=== PATIENT | male | born 1945 | race American Indian/Alaskan Native ===

== ENCOUNTER 2017-01-12 00:14 | Inpatient (IN) | payer MEDICARE ==
--- NOTE | 2017-01-12 01:39 | Emergency Department Report ---
HPI - General Chief Complaint: Altered Mental Status Time Seen by Provider: 01/12/17 01:26 - HPI HPI: Room 1 The patient is a 71-year-old male presenting with a chief complaint of altered mental status. The patient was sent from [facility] for altered mental status. According to the intermediate the patient is normally " combative at baseline." The patient has not been combative today and staff noted patient to have an SPO2 of 90% on room air. Subsequently the patient was sent to the ED for evaluation. EMS found to fentanyl patch on the patient and removed it prior to the patient's arrival Location: Mental status Duration: [see above] Quality: Altered Severity: Moderate Modifying factors: [see above] Context: [see above] Mode of transportation: [not driving] ED Past Medical Hx - Past Medical History Previous Medical History?: Yes Hx Hypertension: Yes Hx Dementia: Yes Additional medical history: chronic prostatis, aphasia, hemiplegia, epilepsy, - Surgical History Past Surgical History?: Yes Additional Surgical History: peg tube, - Family History Family history: no significant - Social History Smoking Status: Unknown if ever smoked Substance Use Type: None - Medications Home Medications: Home Medications Medication Instructions Recorded Confirmed Last Taken Type Ascorbic Acid [Vitamin C] 500 mg PO QDAY 01/12/17 01/12/17 Unknown History Divalproex Sodium [Depakote] 125 mg PO TID 01/12/17 01/12/17 Unknown History Donepezil [Aricept] 5 mg PO QDAY 01/12/17 01/12/17 Unknown History Memantine HCl [Namenda] 10 mg PO QDAY 01/12/17 01/12/17 Unknown History Metoprolol [Lopressor TAB] 50 mg PO BID 01/12/17 01/12/17 Unknown History Mirtazapine [Remeron] 15 mg PO QHS 01/12/17 01/12/17 Unknown History Nitrofurantoin Macrocrysta(Nf) 50 mg PO QDAY 01/12/17 01/12/17 Unknown History [Macrodantin CAP] Phenytoin [Dilantin] 100 mg PO QDAY 01/12/17 01/12/17 Unknown History fentaNYL [Duragesic] 25 mcg TD Q3D 01/12/17 01/12/17 Unknown History traMADol [Ultram] 50 mg PO Q8HR PRN 01/12/17 01/12/17 Unknown History ED Review of Systems ROS: Stated complaint: ALTERED MENTAL STATUS Other details as noted in HPI Comment: Unobtainable due to pts medical conditions Physical Exam - Physical Exam Vital Signs: Vital Signs 01/12/17 00:29 Pulse Rate 73 Respiratory 16 Rate Blood Pressure 128/77 O2 Sat by Pulse 100 Oximetry Physical Exam: GENERAL: The patient is well-developed well-nourished elderly male lying on stretcher with apparent contractures nonverbal only localizing to sternal rub. [ ] HEENT: Normocephalic. Atraumatic. Pupils 3 mm to 2 mm bilaterally. Patient has moist mucous membranes. NECK: Supple. Trachea midline CHEST/LUNGS: Clear to auscultation. There is no respiratory distress noted. HEART/CARDIOVASCULAR: Regular. There is no tachycardia. There is no gallop rub or murmur. ABDOMEN: Abdomen is soft, nontender. Patient has normal bowel sounds. There is no abdominal distention. SKIN: There is no rash. There is no edema. There is no diaphoresis. NEURO: The patient is obtunded. Patient localizes to sternal rub MUSCULOSKELETAL: There is no evidence of acute injury. ED Course Vital Signs 01/12/17 00:29 Pulse Rate 73 Respiratory 16 Rate Blood Pressure 128/77 O2 Sat by Pulse 100 Oximetry - Reevaluation(s) Reevaluation #1: 01/12/17 03:39 Patient shows slightly increased movement of Narcan administration but still appears lethargic. Patient now tachycardia yes - Consultations Consultation #1: 01/12/17 03:[address] CT angiogram of chest CT angiogram of chest ordered ED Medical Decision Making - Lab Data Result diagrams: 01/12/17 00:53 01/12/17 00:53 - EKG Data -: EKG Interpreted by Me EKG shows normal: sinus rhythm Rate: normal - EKG Data When compared to previous EKG there are: previous EKG unavailable - Radiology Data Radiology results: report reviewed (CT head), image reviewed (CT head, chest x- ray) interpreted by me: Chest x-ray- no focal infiltrates, no pneumothorax HEENT head (read by radiologist)-no evidence of an acute intracranial process - Differential Diagnosis altered mental status, oversedation Critical care attestation.: If time is entered above; I have spent that time in minutes in the direct care of this critically ill patient, excluding procedure time. ED Disposition Clinical Impression: Altered mental status Disposition: OP ADMITTED IP TO THIS HOSP Is pt being admited?: Yes Does the pt Need Aspirin: Yes Condition: Fair Referrals: PRIMARY CARE,MD [Primary Care Provider] - 3-5 Days Time of Disposition: 03:43 (hospitalist notified. Requested CT chest)
[2017-01-12 01:54] LABS: Basophils % (Auto) 0.4 % (0.0-1.8); Eosinophils % (Auto) 0.3 % (0.0-4.3); Hemoglobin 13.6 gm/dl (11.8-15.2); Mean Corpuscular HGB Conc 32 % (32-34); Mean Corpuscular Hemoglobin 28 pg (28-32); Mean Corpuscular Volume 86 fl (84-94); Platelet Count 372 K/mm3 (140-440); Red Blood Count 4.88 M/mm3 (3.65-5.03); Red Cell Distribution Width 13.7 % (13.2-15.2); White Blood Count 11.5 K/mm3 (4.5-11.0)
[2017-01-12 01:57] LABS: Alanine Aminotransferase 13 units/L (7-56); Albumin 3.4 g/dL (3.9-5); Albumin/Globulin Ratio 0.7 %; Alkaline Phosphatase 169 units/L (35-129); Anion Gap 18 mmol/L; Bilirubin,Total 0.2 mg/dL (0.1-1.2); Blood Urea Nitrogen 12 mg/dL (9-20); Carbon Dioxide 25 mmol/L (22-30); Glucose 135 mg/dL (75-100); Magnesium 2.1 mg/dL (1.7-2.3); Potassium 4.3 mmol/L (3.6-5.0); Sodium 136 mmol/L (137-145); Total Protein 8.4 g/dL (6.3-8.2)
--- NOTE | 2017-01-12 02:30 | Cat Scan Report ---
FINAL REPORT PROCEDURE: CT HEAD/BRAIN WO CON TECHNIQUE: Computerized tomography of the head was performed without contrast material. HISTORY: altered mental status COMPARISON: No prior studies are available for comparison. FINDINGS: Skull and scalp: Normal. Paranasal sinuses: Normal. Ventricles and subarachnoid spaces: Normal. Cerebrum: No evidence of hemorrhage, acute infarction or mass. Significant atrophy and periventricular deep white matter changes are noted. Area of encephalomalacia in the left frontal lobe consistent with old infarction.. Cerebellum and brainstem: No evidence of hemorrhage, acute infarction or mass. Vasculature: Normal. Comments: None. IMPRESSION: There is no evidence of acute intracranial process. Significant atrophy and periventricular deep white matter changes are noted. 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
[2017-01-12] MEDS ORDERED: NARCAN 0.4 MG/1 ML IV ONE (03:07)
[2017-01-12 05:28] LABS: Urine Drugs of Abuse Note Disclamer
[2017-01-12 05:40] LABS: Bacteria,Urine 3+ /HPF (Negative); Bilirubin,Urine NEG (Negative); Blood,Urine SM (Negative); Ketones,Urine NEG (Negative); Leukocyte Esterase,Urine LG (Negative); Mucus,Urine FEW /HPF; Nitrite,Urine POS (Negative)
--- NOTE | 2017-01-12 06:40 | Cat Scan Report ---
FINAL REPORT PROCEDURE: CT ANGIO CHEST TECHNIQUE: Computerized tomographic angiography of the chest was performed after the IV injection of iodinated nonionic contrast including image processing. The image data was postprocessed using 2-dimensional multiplanar reformatted (MPR) and 3-dimensional (MIP and/or volume rendered) techniques. HISTORY: altered mental status, history of hypoxia COMPARISON: No prior studies are available for comparison. FINDINGS: Heart and pericardium: Normal. Thoracic aorta: Normal. Pulmonary vasculature: There is no evidence pulmonary arterial emboli.. Lymph nodes: No enlarged thoracic lymph nodes. Lungs: Mild COPD. Atelectasis and slight infiltrate bilateral lower lungs. No effusion or pneumothorax. The central airway is patent. Pleural space: No effusion, thickening, or pneumothorax. Musculoskeletal structures: No significant abnormality. Upper abdominal structures: No significant abnormality. IMPRESSION: There is no evidence of pulmonary arterial emboli. Mild COPD. Atelectasis and slight infiltrate bilateral lower lungs.
--- NOTE | 2017-01-12 07:12 | Admit Criteria Form ---
Admission Criteria Documentation: MENTAL STATUS CHANGE Clinical Indications for Inpatient Care (Place 'X' for any and all applicable criteria): Ongoing inpatient care may be needed for ANY ONE of the following(1)(2)(3)(5)(6) : [X]I. Suspected serious etiology (eg, medical disorder, BI[employer]ING [employer]PER[employer] event) of mental status change [ ]II. Danger to self or others not manageable at lower level of care [ ]III. Grave disability (eg, inability to perform self care necessary at lower level of care) [ ]IV. Agitation or inappropriate behavior interfering with care for primary condition (eg, attempting to discontinue lines or drains prematurely, unable to cooperate with respiratory care) [ ]V. Delirium [A] [D][E] as described by ANY ONE of the following(26): [ ]a) Delirium due to alcohol or sedative [F] withdrawal [ ]b) Delirium of uncertain etiology that has not responded to appropriate empiric treatment [ ]c) Delirium that prevents performance of a life-sustaining function (eg, feeding or hydrating oneself) []. General contraindications and/or Inappropriate clinical situations for Observational Care in patients with Mental Status Change, when ANY ONE of the following is required: []a) Prediction of prolongation of LOS based on ANY ONE of the following may be considered as a contraindication for observational care 2, 3, 4, 5, 6, 7, 8, 9, 10, 11 [X]i) Age > 65 yrs. [ ]ii) Patient arriving by ambulance [ ]iii) Patient with high acuity [ ]iv) Patient requiring vital sign monitoring [ ]v) Patient on IV medication [ ]b) Systolic blood pressures 180mmHg 3,12 [ ]c) Patient with altered mental status including delirium and other alteration of consciousness, (3) [ ]d) Patient whose discharge disposition will be to a usp home or rehabilitation home should not be managed in Emergency Department Observation Unit. CMS rule requires 3 days hospital stay before such placement.3,13 [ ]e) Patient with failure to thrive due to broad array of etiologies 3,16,17 [ ]f) Inability to ambulate 3,14 Extended stay beyond goal length of stay for the primary condition may be needed until ALL of the following are present(3)(5): [ ]a) Underlying medical etiology of mental status change is absent, or has been established and adequately treated [ ]b) Danger to self or others is absent or manageable at lower level of care. [ ]c) Behavior crisis management, including physical or chemical restraints, is not required or available at lower level of car [ ]d) Substance or alcohol withdrawal is absent or manageable at lower level of care. [ ]e) Behavioral symptoms (eg, agitation, somnolence, inappropriate behavior) are absent, or are manageable at lower level of care. The original [facility] [employer] content created by [facility] has been revised. The portions of the content which have been revised are identified through the use of italic text or in bold, and [facility] has neither reviewed nor approved the modified material. All other unmodified content is copyright [facility]. Please see references footnoted in the original [facility] edition 2016 Admission Criteria Met: Yes
--- NOTE | 2017-01-12 07:29 | XRay Report ---
AP CHEST: HISTORY: Altered mental status, hypoxia No comparison. There is poor inspiration with mild bibasilar atelectasis. No evidence for infiltrate, pleural effusion or pneumothorax. Heart and mediastinal structures are within normal limits. IMPRESSION: Grossly negative expiratory AP chest. Minor bibasilar atelectasis.
[2017-01-12] MEDS ORDERED: ULTRAM PO PRN (08:37)
--- NOTE | 2017-01-12 08:37 | History and Physical Report ---
History of Present Illness Date of examination: 01/12/17 History of present illness: The patient is a 71-year-old male presenting with a chief complaint of altered mental status. The patient was sent from [facility] for altered mental status. According to the half-way the patient is normally " combative at baseline." The patient has not been combative today and staff noted patient to have an SPO2 of 90% on room air. Subsequently the patient was sent to the ED for evaluation. EMS found to fentanyl patch on the patient and removed it prior to the patient's arrival Past History Past Medical History: hypertension Medications and Allergies Allergies Allergy/AdvReac Type Severity Reaction Status Date / Time No Known Allergies Allergy Unverified 01/12/17 00:39 Home Medications Medication Instructions Recorded Confirmed Last Taken Type Ascorbic Acid [Vitamin C] 500 mg PO QDAY 01/12/17 01/12/17 Unknown History Divalproex Sodium [Depakote] 125 mg PO TID 01/12/17 01/12/17 Unknown History Donepezil [Aricept] 5 mg PO QDAY 01/12/17 01/12/17 Unknown History Memantine HCl [Namenda] 10 mg PO QDAY 01/12/17 01/12/17 Unknown History Metoprolol [Lopressor TAB] 50 mg PO BID 01/12/17 01/12/17 Unknown History Mirtazapine [Remeron] 15 mg PO QHS 01/12/17 01/12/17 Unknown History Nitrofurantoin Macrocrysta(Nf) 50 mg PO QDAY 01/12/17 01/12/17 Unknown History [Macrodantin CAP] Phenytoin [Dilantin] 100 mg PO QDAY 01/12/17 01/12/17 Unknown History fentaNYL [Duragesic] 25 mcg TD Q3D 01/12/17 01/12/17 Unknown History traMADol [Ultram] 50 mg PO Q8HR PRN 01/12/17 01/12/17 Unknown History Review of Systems Respiratory: shortness of breath Neurological: change in mentation, confusion Exam - Constitutional Vitals: Temp Pulse Resp BP Pulse Ox 98.2 F 121 H 22 115/76 98 01/12/17 07:41 01/12/17 05:40 01/12/17 05:40 01/12/17 07:36 01/12/17 07:36 General appearance: Present: no acute distress - EENT Eyes: Present: PERRL, EOM intact ENT: hearing intact, clear oral mucosa - Neck Neck: Present: supple, normal ROM - Respiratory Respiratory effort: normal Respiratory: bilateral: CTA - Cardiovascular Rhythm: regular Heart Sounds: Present: S1 & S2 - Abdominal General gastrointestinal: Present: soft, non-tender, non-distended, normal bowel sounds - Musculoskeletal Musculoskeletal: strength equal bilaterally - Psychiatric Psychiatric: appropriate mood/affect, intact judgment & insight - Neurologic Neurologic: CNII-XII intact, moves all extremities Results - Labs CBC & Chem 7: 01/12/17 00:53 01/12/17 00:53 Labs: Laboratory Last Values WBC 11.5 K/mm3 (4.5-11.0) H 01/12/17 00:53 RBC 4.88 M/mm3 (3.65-5.03) 01/12/17 00:53 Hgb 13.6 gm/dl (11.8-15.2) 01/12/17 00:53 Hct 42.0 % (35.5-45.6) 01/12/17 00:53 MCV 86 fl (84-94) 01/12/17 00:53 MCH 28 pg (28-32) 01/12/17 00:53 MCHC 32 % (32-34) 01/12/17 00:53 RDW 13.7 % (13.2-15.2) 01/12/17 00:53 Plt Count 372 K/mm3 (140-440) 01/12/17 00:53 Lymph % (Auto) 7.6 % (13.4-35.0) L 01/12/17 00:53 [place] % (Auto) 3.1 % (0.0-7.3) 01/12/17 00:53 Eos % (Auto) 0.3 % (0.0-4.3) 01/12/17 00:53 Baso % (Auto) 0.4 % (0.0-1.8) 01/12/17 00:53 Lymph # 0.9 K/mm3 (1.2-5.4) L 01/12/17 00:53 [place] # 0.4 K/mm3 (0.0-0.8) 01/12/17 00:53 Eos # 0.0 K/mm3 (0.0-0.4) 01/12/17 00:53 Baso # 0.1 K/mm3 (0.0-0.1) 01/12/17 00:53 Seg Neutrophils % 88.6 % (40.0-70.0) H 01/12/17 00:53 Seg Neutrophils # 10.2 K/mm3 (1.8-7.7) H 01/12/17 00:53 Sodium 136 mmol/L (137-145) L 01/12/17 00:53 Potassium 4.3 mmol/L (3.6-5.0) 01/12/17 00:53 Chloride 97.0 mmol/L (98-107) L 01/12/17 00:53 Carbon Dioxide 25 mmol/L (22-30) 01/12/17 00:53 Anion Gap 18 mmol/L 01/12/17 00:53 BUN 12 mg/dL (9-20) 01/12/17 00:53 Creatinine 0.4 mg/dL (0.8-1.5) L 01/12/17 00:53 Estimated GFR > 60 ml/min 01/12/17 00:53 BUN/Creatinine Ratio 30.00 % 01/12/17 00:53 Glucose 135 mg/dL (75-100) H 01/12/17 00:53 Lactic Acid 3.8 mmol/L (0.7-2.0) H* 01/12/17 03:40 Calcium 9.0 mg/dL (8.4-10.2) 01/12/17 00:53 Magnesium 2.1 mg/dL (1.7-2.3) 01/12/17 00:53 Total Bilirubin 0.2 mg/dL (0.1-1.2) 01/12/17 00:53 AST 17 units/L (5-40) 01/12/17 00:53 ALT 13 units/L (7-56) 01/12/17 00:53 Alkaline Phosphatase 169 units/L (35-129) H 01/12/17 00:53 Total Protein 8.4 g/dL (6.3-8.2) H 01/12/17 00:53 Albumin 3.4 g/dL (3.9-5) L 01/12/17 00:53 Albumin/Globulin Ratio 0.7 % 01/12/17 00:53 TSH 2.400 mlU/mL (0.270-4.200) 01/12/17 00:53 Urine Color Yellow (Yellow) 01/12/17 05:09 Urine Turbidity Slightly-cloudy (Clear) 01/12/17 05:09 Urine pH 6.0 (5.0-7.0) 01/12/17 05:09 Ur Specific [place] 1.018 (1.003-1.030) 01/12/17 05:09 Urine Protein 30 mg/dl mg/dL (Negative) 01/12/17 05:09 Urine Glucose (UA) Neg mg/dL (Negative) 01/12/17 05:09 Urine Ketones Neg mg/dL (Negative) 01/12/17 05:09 Urine Blood Sm (Negative) 01/12/17 05:09 Urine Nitrite Pos (Negative) 01/12/17 05:09 Urine Bilirubin Neg (Negative) 01/12/17 05:09 Urine Urobilinogen 2.0 mg/dL (<2.0) 01/12/17 05:09 Ur Leukocyte Esterase Lg (Negative) 01/12/17 05:09 Urine WBC (Auto) 132.0 /HPF (0.0-6.0) H 01/12/17 05:09 Urine RBC (Auto) 4.0 /HPF (0.0-6.0) 01/12/17 05:09 U Epithel Cells (Auto) 4.0 /HPF (0-13.0) 01/12/17 05:09 Urine Bacteria (Auto) 3+ /HPF (Negative) 01/12/17 05:09 Ur Transition Epith Cell 1 /HPF 01/12/17 05:09 Urine Mucus Few /HPF 01/12/17 05:09 Urine Opiates Screen Presumptive negative 01/12/17 05:09 Urine Methadone Screen Presumptive negative 01/12/17 05:09 Acetaminophen < 15.0 ug/mL (10.0-30.0) 01/12/17 00:53 Ur Barbiturates Screen Presumptive negative 01/12/17 05:09 Ur Phencyclidine Scrn Presumptive negative 01/12/17 05:09 Ur Amphetamines Screen Presumptive negative 01/12/17 05:09 U Benzodiazepines Scrn Presumptive negative 01/12/17 05:09 Urine Cocaine Screen Presumptive negative 01/12/17 05:09 U Marijuana (THC) Screen Presumptive negative 01/12/17 05:09 Drugs of Abuse Note Disclamer 01/12/17 05:09 Plasma/Serum Alcohol < 0.01 gm% (0-0.07) 01/12/17 00:53 Assessment and Plan - Patient Problems (1) UTI (urinary tract infection) Current Visit: Yes Status: Acute Qualifiers: Urinary tract infection type: U Hematuria presence: H Indwelling urinary catheter type: I Encounter type: E Plan to address problem: Start IV abx and follow cultures (2) Dyspnea and respiratory abnormalities Current Visit: Yes Status: Acute Plan to address problem: CTA of the chest was negative for PE, Continue O2 (3) Altered mental status Current Visit: Yes Status: Acute Qualifiers: Altered mental status type: A Coma depth: C Coma timing: C Plan to address problem: CT Head showed no acute intracranial abnormalities, Possibly related to UTI, Will follow electrolytes
[2017-01-12] MEDS ORDERED: ZOFRAN IV PRN (08:39)
[2017-01-12] MEDS ORDERED: MILK OF MAGNESIA PO PRN (08:39)
[2017-01-12] MEDS ORDERED: NON-FORMULARY (Memantine Hcl [Namenda] 10 MG) PO SCH (10:00)
[2017-01-12] MEDS ORDERED: LOVENOX SUB-Q SCH (10:00)
[2017-01-12] MEDS ORDERED: TYLENOL PO PRN (11:00)
[2017-01-12] MEDS ORDERED: DULCOLAX PR PRN (11:00)
[2017-01-12] MEDS: LEVAQUIN 500MG/100ML 500 MG/100 ML BAG IV SCH (11:20)
[2017-01-12] MEDS: ARICEPT PO SCH (13:10)
[2017-01-12] MEDS: DILANTIN PO SCH (13:57)
[2017-01-12] MEDS: LOPRESSOR PO SCH ×2 (13:57→23:05)
[2017-01-12] MEDS: D5NS 1,000 ML IV SCH (13:58)
[2017-01-12] MEDS: VITAMIN C PO SCH (13:58)
[2017-01-12] MEDS: NAMENDA XR PO SCH (17:46)
[2017-01-12] MEDS: REMERON PO SCH (23:02)
[2017-01-13] MEDS: D5NS 1,000 ML IV SCH ×3 (00:33→22:14)
[2017-01-13 08:42] LABS: Basophils % (Auto) 0.1 % (0.0-1.8); Hematocrit 35.8 % (35.5-45.6); Hemoglobin 11.5 gm/dl (11.8-15.2); Mean Corpuscular HGB Conc 32 % (32-34); Mean Corpuscular Hemoglobin 28 pg (28-32); Mean Corpuscular Volume 86 fl (84-94); Platelet Count 308 K/mm3 (140-440); Red Blood Count 4.18 M/mm3 (3.65-5.03); Red Cell Distribution Width 13.6 % (13.2-15.2); White Blood Count 17.9 K/mm3 (4.5-11.0)
[2017-01-13 09:20] LABS: Alanine Aminotransferase 11 units/L (7-56); Albumin 3.3 g/dL (3.9-5); Albumin/Globulin Ratio 0.8 %; Alkaline Phosphatase 129 units/L (35-129); Anion Gap 16 mmol/L; Blood Urea Nitrogen 13 mg/dL (9-20); Calcium 8.9 mg/dL (8.4-10.2); Carbon Dioxide 25 mmol/L (22-30); Chloride 105.6 mmol/L (98-107); Glucose 154 mg/dL (75-100); Potassium 3.3 mmol/L (3.6-5.0); Sodium 143 mmol/L (137-145); Total Protein 7.6 g/dL (6.3-8.2)
[2017-01-13 09:24] LABS: Bilirubin,Total 0.4 mg/dL (0.1-1.2)
--- NOTE | 2017-01-13 09:42 | Gastroenterology Consultation ---
History of Present Illness - Reason for Consult Consult date: 01/13/17 Peg dislodgement. Requesting physician: ABBEY BAUM - History of Present Illness Mr. Nicole is a 71 y/o male admitted from his NH with AMS. He was noted to have an elevated lactic acid, elevated WBC. He is admitted with sepsis/ UTI. Approximately 4-5 AM, he pulled out his existing PEG. During assessment, patient is nonverbal and no family at bedside, therefore, information is obtained per chart review. Patient has no prior medical hx here at [facility], length of PEG unknown. Past History Past Medical History: hypertension Past Surgical History: Other (PEG placement.) Social history: other (Live in [place]) Family history: other (unknown.) Medications and Allergies Allergies Allergy/AdvReac Type Severity Reaction Status Date / Time No Known Allergies Allergy Unverified 01/12/17 00:39 Home Medications Medication Instructions Recorded Confirmed Last Taken Type Ascorbic Acid [Vitamin C] 500 mg PO QDAY 01/12/17 01/12/17 Unknown History Divalproex Sodium [Depakote] 125 mg PO TID 01/12/17 01/12/17 Unknown History Donepezil [Aricept] 5 mg PO QDAY 01/12/17 01/12/17 Unknown History Memantine HCl [Namenda] 10 mg PO QDAY 01/12/17 01/12/17 Unknown History Metoprolol [Lopressor TAB] 50 mg PO BID 01/12/17 01/12/17 Unknown History Mirtazapine [Remeron] 15 mg PO QHS 01/12/17 01/12/17 Unknown History Nitrofurantoin Macrocrysta(Nf) 50 mg PO QDAY 01/12/17 01/12/17 Unknown History [Macrodantin CAP] Phenytoin [Dilantin] 100 mg PO QDAY 01/12/17 01/12/17 Unknown History fentaNYL [Duragesic] 25 mcg TD Q3D 01/12/17 01/12/17 Unknown History traMADol [Ultram] 50 mg PO Q8HR PRN 01/12/17 01/12/17 Unknown History Active Meds: Active Medications Acetaminophen (Tylenol) 650 mg PO Q4H PRN PRN Reason: Pain MILD(1-3)/Fever >100.5/[place] Ascorbic Acid (Vitamin C) 500 mg PO QDAY NORMA Last Admin: 01/12/17 13:58 Dose: 500 mg Bisacodyl (Dulcolax) 10 mg UT QDAY PRN PRN Reason: Constipation unrelieved by MOM Divalproex Sodium (Depakote Dr) 125 mg PO TID [facility] Last Admin: 01/12/17 23:02 Dose: 125 mg Donepezil HCl (Aricept) 5 mg PO QDAY [facility] Last Admin: 01/12/17 13:10 Dose: Not Given Enoxaparin Sodium (Lovenox) 40 mg SUB-Q QDAY@1000 NORMA Dextrose/Sodium Chloride (D5ns) 1,000 mls @ 100 mls/hr IV DIRECT [facility] Last Admin: 01/13/17 00:33 Dose: 100 mls/hr Levofloxacin/Dextrose (Levaquin 500mg/100ml) 500 mg in 100 mls @ 100 mls/hr IV Q24HR NORMA PRN Reason: Protocol Last Admin: 01/12/17 11:20 Dose: 100 mls/hr Magnesium Hydroxide (Milk Of Magnesia) 30 ml PO Q4H PRN PRN Reason: Constipation Memantine (Namenda Xr) 14 mg PO DAILY [facility] Last Admin: 01/12/17 17:46 Dose: Not Given Metoprolol Tartrate (Lopressor) 50 mg PO BID [facility] Last Admin: 01/12/17 23:05 Dose: Not Given Mirtazapine (Remeron) 15 mg PO QHS [facility] Last Admin: 01/12/17 23:02 Dose: 15 mg Ondansetron HCl (Zofran) 4 mg IV Q8H PRN PRN Reason: N/V unrelieved by Reglan Phenytoin (Dilantin) 100 mg PO QDAY [facility] Last Admin: 01/12/17 13:57 Dose: 100 mg Tramadol HCl (Ultram) 50 mg PO Q8HR PRN PRN Reason: Pain Review of Systems - Review of Systems ROS unobtainable: due to mental status Exam - Constitutional Vital Signs: Temp Pulse Resp BP Pulse Ox 98.9 F 112 H 20 122/76 97 01/13/17 08:33 01/13/17 08:33 01/13/17 08:33 01/13/17 08:33 01/13/17 09:17 General appearance: no acute distress - EENT Eyes: EOM intact - Respiratory Respiratory: bilateral: diminished, rhonchi - Cardiovascular Rhythm: regular Heart Sounds: Present: S1 & S2 - Gastrointestinal General gastrointestinal: Present: soft, non-tender, non-distended, normal bowel sounds, other (Feeding tube in place.) - Integumentary Integumentary: Present: warm, dry - Neurologic Neurological: other (nonverbal.) - Psychiatric Psychiatric: agitated, other (restrained.) - Labs CBC & Chem 7: 01/13/17 07:50 01/13/17 07:50 Lab Results: Laboratory Results - last 24 hr 01/13/17 01/13/17 01/13/17 07:50 07:50 08:09 WBC 17.9 H RBC 4.18 Hgb 11.5 L Hct 35.8 D MCV 86 MCH 28 MCHC 32 RDW 13.6 Plt Count 308 Lymph % (Auto) 6.6 L [place] % (Auto) 4.7 Eos % (Auto) 0.0 Baso % (Auto) 0.1 Lymph # 1.2 [place] # 0.8 Eos # 0.0 Baso # 0.0 Seg Neutrophils % 88.6 H Seg Neutrophils # 15.9 H Chloride 105.6 Carbon Dioxide 25 Anion Gap 16 BUN 13 Creatinine 0.5 L Estimated GFR > 60 BUN/Creatinine Ratio 26.00 Glucose 154 H Lactic Acid 1.5 Calcium 8.9 Total Bilirubin 0.4 AST 14 ALT 11 Alkaline Phosphatase 129 Total Protein 7.6 Albumin 3.3 L Albumin/Globulin Ratio 0.8 Assessment and Plan 1. Dislodged PEG site -Since the tube was pulled out this AM, I have asked nursing to place [place] to retain track in the hope that the tube can be exchanged at bedside. Wound care was consulted to do this, and she was able to replace tube with 22f. I have ordered KUB to assess placement. No current bleeding at site. Scant sero/ sang fluid noted. DO note use site until assess per Dr. Cedillo, D/w nursing. Ok for light dressing if site drains. Keep NPO for now.
[2017-01-13] MEDS: LEVAQUIN 500MG/100ML 500 MG/100 ML BAG IV SCH (10:11)
--- NOTE | 2017-01-13 10:56 | XRay Report ---
X-RAY G-TUBE STUDY History: PEG tube replacement Findings: [employer] film of the abdomen demonstrates a PEG tube terminating in the epigastric region. IVC filter at L4-5 level. There is moderate fecal retention throughout colon. A second image was obtained following injection of oral contrast through the PEG tube. Contrast outlines a normal-appearing stomach and proximal small bowel loops. There is no evidence for extravasation or obstruction. Impression: Normal PEG tube. No evidence for extravasation or obstruction.
[2017-01-13] MEDS: LOVENOX SUB-Q SCH (13:03)
[2017-01-13] MEDS: LOPRESSOR PO SCH ×2 (13:46→22:15)
[2017-01-13] MEDS ORDERED: PANCREAZE DR 10,500 UNIT FEEDTUBE PRN (15:42)
[2017-01-13] MEDS ORDERED: SODIUM BICARBONATE FEEDTUBE PRN (15:42)
[2017-01-13] MEDS ORDERED: SIMPLE SYRUP FEEDTUBE PRN ×2 (15:42)
--- NOTE | 2017-01-13 16:26 | Progress Note ---
Assessment and Plan Assessment and plan: --Metabolic encephalopathy/altered level of consciousness Multifactorial, probably secondary to UTI, underlying dementia Continue supportive care --Urinary tract infection; IV antibiotics, IV fluids follow cultures --Acute respiratory distress Chest x-ray CT angiogram negative, continue to supportive care --Dislodged PEG tube Nothing by mouth status, GI consult, possible new PEG tube placement --DVT prophylaxis with Lovenox Closely monitor the patient and adjust the management pending clinical course --Patient for CODE STATUS I discussed patient's condition treatment plan in detail with the patient's sister who is also his POA She had many questions regarding the treatment plan, I answered all of them , verbalized understanding Possible discharge in 1-2 days if patient is stable , History Interval history: Patient seen and evaluated this morning medical records reviewed Admitted with altered level of consciousness and possibly UTI Patient also pulled Out the PEG tube Patient is noncommunicative, not in acute distress Vital signs reviewed Hospitalist Physical - Constitutional Vitals: Temp Pulse Resp BP Pulse Ox 98.8 F 118 H 20 125/78 97 01/13/17 13:32 01/13/17 13:32 01/13/17 13:32 01/13/17 13:32 01/13/17 13:32 General appearance: Present: no acute distress - EENT Eyes: Present: PERRL, EOM intact - Neck Neck: Present: supple - Respiratory Respiratory effort: normal Respiratory: bilateral: diminished, rhonchi, negative: rales, wheezing - Cardiovascular Rhythm: regular Heart Sounds: Present: S1 & S2 - Extremities Extremities: no ischemia, pulses intact, pulses symmetrical Peripheral Pulses: within normal limits - Integumentary Integumentary: Present: clear, warm - Psychiatric Psychiatric: other ( noncommunicative confused ) - Neurologic Neurologic: moves all extremities Results - Labs CBC & Chem 7: 01/13/17 07:50 01/13/17 07:50 Labs: Laboratory Last Values WBC 17.9 K/mm3 (4.5-11.0) H 01/13/17 07:50 RBC 4.18 M/mm3 (3.65-5.03) 01/13/17 07:50 Hgb 11.5 gm/dl (11.8-15.2) L 01/13/17 07:50 Hct 35.8 % (35.5-45.6) D 01/13/17 07:50 MCV 86 fl (84-94) 01/13/17 07:50 MCH 28 pg (28-32) 01/13/17 07:50 MCHC 32 % (32-34) 01/13/17 07:50 RDW 13.6 % (13.2-15.2) 01/13/17 07:50 Plt Count 308 K/mm3 (140-440) 01/13/17 07:50 Lymph % (Auto) 6.6 % (13.4-35.0) L 01/13/17 07:50 Shannon % (Auto) 4.7 % (0.0-7.3) 01/13/17 07:50 Eos % (Auto) 0.0 % (0.0-4.3) 01/13/17 07:50 Baso % (Auto) 0.1 % (0.0-1.8) 01/13/17 07:50 Lymph # 1.2 K/mm3 (1.2-5.4) 01/13/17 07:50 Shannon # 0.8 K/mm3 (0.0-0.8) 01/13/17 07:50 Eos # 0.0 K/mm3 (0.0-0.4) 01/13/17 07:50 Baso # 0.0 K/mm3 (0.0-0.1) 01/13/17 07:50 Seg Neutrophils % 88.6 % (40.0-70.0) H 01/13/17 07:50 Seg Neutrophils # 15.9 K/mm3 (1.8-7.7) H 01/13/17 07:50 Sodium 143 mmol/L (137-145) D 01/13/17 07:50 Potassium 3.3 mmol/L (3.6-5.0) L D 01/13/17 07:50 Chloride 105.6 mmol/L (98-107) 01/13/17 07:50 Carbon Dioxide 25 mmol/L (22-30) 01/13/17 07:50 Anion Gap 16 mmol/L 01/13/17 07:50 BUN 13 mg/dL (9-20) 01/13/17 07:50 Creatinine 0.5 mg/dL (0.8-1.5) L 01/13/17 07:50 Estimated GFR > 60 ml/min 01/13/17 07:50 BUN/Creatinine Ratio 26.00 % 01/13/17 07:50 Glucose 154 mg/dL (75-100) H 01/13/17 07:50 Lactic Acid 1.5 mmol/L (0.7-2.0) 01/13/17 08:09 Calcium 8.9 mg/dL (8.4-10.2) 01/13/17 07:50 Magnesium 2.1 mg/dL (1.7-2.3) 01/12/17 00:53 Total Bilirubin 0.4 mg/dL (0.1-1.2) 01/13/17 07:50 AST 14 units/L (5-40) 01/13/17 07:50 ALT 11 units/L (7-56) 01/13/17 07:50 Alkaline Phosphatase 129 units/L (35-129) 01/13/17 07:50 Total Protein 7.6 g/dL (6.3-8.2) 01/13/17 07:50 Albumin 3.3 g/dL (3.9-5) L 01/13/17 07:50 Albumin/Globulin Ratio 0.8 % 01/13/17 07:50 TSH 2.400 mlU/mL (0.270-4.200) 01/12/17 00:53 Urine Color Yellow (Yellow) 01/12/17 05:09 Urine Turbidity Slightly-cloudy (Clear) 01/12/17 05:09 Urine pH 6.0 (5.0-7.0) 01/12/17 05:09 Ur Specific [place] 1.018 (1.003-1.030) 01/12/17 05:09 Urine Protein 30 mg/dl mg/dL (Negative) 01/12/17 05:09 Urine Glucose (UA) Neg mg/dL (Negative) 01/12/17 05:09 Urine Ketones Neg mg/dL (Negative) 01/12/17 05:09 Urine Blood Sm (Negative) 01/12/17 05:09 Urine Nitrite Pos (Negative) 01/12/17 05:09 Urine Bilirubin Neg (Negative) 01/12/17 05:09 Urine Urobilinogen 2.0 mg/dL (<2.0) 01/12/17 05:09 Ur Leukocyte Esterase Lg (Negative) 01/12/17 05:09 Urine WBC (Auto) 132.0 /HPF (0.0-6.0) H 01/12/17 05:09 Urine RBC (Auto) 4.0 /HPF (0.0-6.0) 01/12/17 05:09 U Epithel Cells (Auto) 4.0 /HPF (0-13.0) 01/12/17 05:09 Urine Bacteria (Auto) 3+ /HPF (Negative) 01/12/17 05:09 Ur Transition Epith Cell 1 /HPF 01/12/17 05:09 Urine Mucus Few /HPF 01/12/17 05:09 Urine Opiates Screen Presumptive negative 01/12/17 05:09 Urine Methadone Screen Presumptive negative 01/12/17 05:09 Acetaminophen < 15.0 ug/mL (10.0-30.0) 01/12/17 00:53 Ur Barbiturates Screen Presumptive negative 01/12/17 05:09 Ur Phencyclidine Scrn Presumptive negative 01/12/17 05:09 Ur Amphetamines Screen Presumptive negative 01/12/17 05:09 U Benzodiazepines Scrn Presumptive negative 01/12/17 05:09 Urine Cocaine Screen Presumptive negative 01/12/17 05:09 U Marijuana (THC) Screen Presumptive negative 01/12/17 05:09 Drugs of Abuse Note Disclamer 01/12/17 05:09 Plasma/Serum Alcohol < 0.01 gm% (0-0.07) 01/12/17 00:53
[2017-01-13] MEDS: DILANTIN PO SCH (17:53)
[2017-01-13] MEDS: VITAMIN C PO SCH (17:53)
[2017-01-13] MEDS: NAMENDA XR PO SCH (17:53)
[2017-01-13] MEDS: ARICEPT PO SCH (17:53)
[2017-01-13] MEDS: REMERON PO SCH (22:15)
[2017-01-14] MEDS: D5NS 1,000 ML IV SCH (06:56)
[2017-01-14 07:54] LABS: Basophils % (Auto) 0.2 % (0.0-1.8); Eosinophils % (Auto) 0.4 % (0.0-4.3); Hematocrit 38.2 % (35.5-45.6); Hemoglobin 11.9 gm/dl (11.8-15.2); Mean Corpuscular HGB Conc 31 % (32-34); Mean Corpuscular Hemoglobin 28 pg (28-32); Mean Corpuscular Volume 90 fl (84-94); Platelet Count 282 K/mm3 (140-440); Red Blood Count 4.27 M/mm3 (3.65-5.03); Red Cell Distribution Width 14.2 % (13.2-15.2); White Blood Count 10.3 K/mm3 (4.5-11.0)
[2017-01-14 08:13] LABS: Anion Gap 14 mmol/L; Blood Urea Nitrogen 8 mg/dL (9-20); Calcium 8.8 mg/dL (8.4-10.2); Carbon Dioxide 24 mmol/L (22-30); Chloride 107.2 mmol/L (98-107); Glucose 174 mg/dL (75-100); Magnesium 1.9 mg/dL (1.7-2.3); Potassium 3.5 mmol/L (3.6-5.0); Sodium 142 mmol/L (137-145)
[2017-01-14] MEDS: ARICEPT PO SCH (09:11)
[2017-01-14] MEDS: LOVENOX SUB-Q SCH (09:11)
[2017-01-14] MEDS: DILANTIN PO SCH (09:11)
[2017-01-14] MEDS: VITAMIN C PO SCH (09:11)
[2017-01-14] MEDS: NAMENDA XR PO SCH (09:12)
[2017-01-14] MEDS: LEVAQUIN 500MG/100ML 500 MG/100 ML BAG IV SCH (09:12)
[2017-01-14] MEDS: LOPRESSOR PO SCH (09:12)
[2017-01-14] MEDS ORDERED: POTASSIUM CHLORIDE FEEDTUBE ONE (10:00)
--- NOTE | 2017-01-14 11:05 | Discharge Summary ---
Providers - Providers Date of Admission: 01/12/17 08:40 Date of discharge: 01/14/17 Attending physician: ABBEY BAUM 01/12/17 17:12 Consult to Dietitian/Nutrition [CONS] Routine Physician Instructions: Reason For Exam: Reason for Consult: Write/Manage Tube Feeding 01/13/17 07:52 Consult to Physician [CONS] Routine Consulting Provider: JOE ROMO Reason For Exam: dislodged PEG Place consult to:: integration consultant Notified:: answering service Phone number called:: [phone] Was contact made?: Yes If yes, spoke with:: erica Time called:: 08:17 Primary care physician: DRAW IN HAND Hospitalization Condition: Fair Disposition: DC/TX SNF W [facility] CERT Core Measure Documentation - Palliative Care Palliative Care/ Comfort Measures: Not Applicable - Core Measures Any of the following diagnoses?: none Exam - Constitutional Vitals: Temp Pulse Resp BP Pulse Ox 98.8 F 92 H 24 130/73 96 01/14/17 08:22 01/14/17 08:22 01/14/17 08:22 01/14/17 08:22 01/14/17 09:29 Plan Diet: other (PWG feeds per protocol) Follow up with: PRIMARY CAREMD [Primary Care Provider] - 3-5 Days
[2017-01-14 11:46] VITALS: BP 140/86
== END 2017-01-14 13:12 | DRG 871 ==
LOC: ED 00:14 → 3A 08:40
PROVIDERS: ADMIT Internal Medicine; ATTEND Internal Medicine
PROC: 0D20XUZ Change Feeding Device in Upper Intestinal Tract, External Approach (ICD-10-PCS; principal; 2017-01-13)
DX: A41.9 Sepsis, unspecified organism (principal); G93.41 Metabolic encephalopathy; N39.0 Urinary tract infection, site not specified; Z68.1 Body mass index [BMI] 19.9 or less, adult; R47.01 Aphasia; G81.90 Hemiplegia, unspecified affecting unspecified side; R06.00 Dyspnea, unspecified; I10 Essential (primary) hypertension; F03.90 Unspecified dementia, unspecified severity, without behavioral disturbance, psychotic disturbance, mood disturbance, and anxiety; N41.1 Chronic prostatitis; G40.909 Epilepsy, unspecified, not intractable, without status epilepticus; Z79.899 Other long term (current) drug therapy
CPT/HCPCS: 36415; 70450; 71010; 71275; 74000; 80048; 80053; 80307; 80320; 81001; 82140; 83735; 84443; 85025; 87040; 87086; 93005; 93010; 94760; 96374; 96375; G0480; J1650; J1956; J2310; J7042; Q9963; Q9967

== ENCOUNTER 2017-05-16 09:24 | Inpatient (IN) | payer MEDICARE ==
--- NOTE | 2017-05-16 10:49 | Emergency Department Report ---
ED General Adult HPI - General Chief complaint: Tube Replacement Stated complaint: G-TUBE REPLACEMENT Time Seen by Provider: 05/16/17 10:27 Source: EMS, old records reviewed (december admission for uti, sepsis, peg tube) Mode of arrival: Stretcher Limitations: Altered Mental Status, Physical Limitation - History of Present Illness Initial comments: 71-year-old male with a past medical history dementia, hypertension, chronic prostatitis, aphasia, hemiplegia, epilepsy, and PEG tube dependent presents to the hospital with complaints of dislodged PEG tube. Patient is from [facility] and staff does not know when the old tube came out and did not send the old tube or port the previous size. Patient unable to provide any history of present illness due to significant dementia. Per [facility]itent[facility] paperwork patient is full code, confused at his baseline, mobility is limited to the geriatric chair, patient needs assisted with feeds and a pured diet. Patient has a right posterior heel ulcer. Patient also had an outpatient arterial Duplex examination of bilateral legs on May 14. - Related Data Home Medications Medication Instructions Recorded Confirmed Last Taken Ascorbic Acid [Vitamin C] 500 mg PO QDAY 01/12/17 01/12/17 Unknown Divalproex Sodium [Depakote] 125 mg PO TID 01/12/17 01/12/17 Unknown Donepezil [Aricept] 5 mg PO QDAY 01/12/17 01/12/17 Unknown Memantine HCl [Namenda] 10 mg PO QDAY 01/12/17 01/12/17 Unknown Metoprolol [Lopressor TAB] 50 mg PO BID 01/12/17 01/12/17 Unknown Mirtazapine [Remeron] 15 mg PO QHS 01/12/17 01/12/17 Unknown Nitrofurantoin Macrocrysta(Nf) 50 mg PO QDAY 01/12/17 01/12/17 Unknown [Macrodantin CAP] Phenytoin [Dilantin] 100 mg PO QDAY 01/12/17 01/12/17 Unknown fentaNYL [Duragesic] 25 mcg TD Q3D 01/12/17 01/12/17 Unknown traMADol [Ultram] 50 mg PO Q8HR PRN 01/12/17 01/12/17 Unknown Allergies Allergy/AdvReac Type Severity Reaction Status Date / Time No Known Allergies Allergy Unverified 01/12/17 00:39 ED Review of Systems ROS: Stated complaint: G-TUBE REPLACEMENT Other details as noted in HPI Comment: Unobtainable due to pts medical conditions ED Past Medical Hx - Past Medical History Hx Hypertension: Yes Hx Dementia: Yes Additional medical history: chronic prostatis, aphasia, hemiplegia, epilepsy, - Surgical History Additional Surgical History: peg tube, - Social History Smoking Status: Never Smoker Substance Use Type: None - Medications Home Medications: Home Medications Medication Instructions Recorded Confirmed Last Taken Type Ascorbic Acid [Vitamin C] 500 mg PO QDAY 01/12/17 01/12/17 Unknown History Divalproex Sodium [Depakote] 125 mg PO TID 01/12/17 01/12/17 Unknown History Donepezil [Aricept] 5 mg PO QDAY 01/12/17 01/12/17 Unknown History Memantine HCl [Namenda] 10 mg PO QDAY 01/12/17 01/12/17 Unknown History Metoprolol [Lopressor TAB] 50 mg PO BID 01/12/17 01/12/17 Unknown History Mirtazapine [Remeron] 15 mg PO QHS 01/12/17 01/12/17 Unknown History Nitrofurantoin Macrocrysta(Nf) 50 mg PO QDAY 01/12/17 01/12/17 Unknown History [Macrodantin CAP] Phenytoin [Dilantin] 100 mg PO QDAY 01/12/17 01/12/17 Unknown History fentaNYL [Duragesic] 25 mcg TD Q3D 01/12/17 01/12/17 Unknown History traMADol [Ultram] 50 mg PO Q8HR PRN 01/12/17 01/12/17 Unknown History ED Physical Exam - General Limitations: Altered Mental Status, Physical Limitation - Other Other exam information: General: No limitations, patient is alert in no acute distress Head exam: Atraumatic, normocephalic Eyes exam: Normal appearance, pupils equal reactive to light ENT: Moist mucous membrane, normal oropharynx Neck exam: Normal inspection Respiratory exam: Clear to auscultation bilateral, no wheezes, rales, crackles Cardiovascular: Normal rate and rhythm, normal heart sounds Abdomen: Soft, nondistended, and nontender, closed Peg stoma noted to the epigastrium Extremity: Full range of motion normal inspection no deformity ED Course Vital Signs 05/16/17 10:10 Temperature 97.3 F L Pulse Rate 61 Respiratory 16 Rate Blood Pressure 136/68 O2 Sat by Pulse 99 Oximetry - Consultations Consultation #1: 05/16/17 10:[address] Salazar with GI and will consult for Peg placement ED Medical Decision Making - Lab Data Result diagrams: 05/16/17 11:55 05/16/17 11:55 Lab Results 05/16/17 05/16/17 05/16/17 Range/Units 11:55 11:55 11:55 WBC 6.5 (4.5-11.0) K/mm3 RBC 4.16 (3.65-5.03) M/mm3 Hgb 11.8 (11.8-15.2) gm/dl Hct 36.5 (35.5-45.6) % MCV 88 (84-94) fl MCH 28 (28-32) pg MCHC 32 (32-34) % RDW 13.7 (13.2-15.2) % Plt Count 329 (140-440) K/mm3 Lymph % (Auto) 22.4 (13.4-35.0) % [place] % (Auto) 6.6 (0.0-7.3) % Eos % (Auto) 3.1 (0.0-4.3) % Baso % (Auto) 0.4 (0.0-1.8) % Lymph # 1.5 (1.2-5.4) K/mm3 [place] # 0.4 (0.0-0.8) K/mm3 Eos # 0.2 (0.0-0.4) K/mm3 Baso # 0.0 (0.0-0.1) K/mm3 Seg Neutrophils % 67.5 (40.0-70.0) % Seg Neutrophils # 4.4 (1.8-7.7) K/mm3 PT 14.5 (12.2-14.9) Sec. INR 1.14 H (0.87-1.13) APTT 32.3 (24.2-36.6) Sec. Sodium 137 (137-145) mmol/L Potassium 4.3 (3.6-5.0) mmol/L Chloride 99.2 (98-107) mmol/L Carbon Dioxide 24 (22-30) mmol/L Anion Gap 18 mmol/L BUN 14 (9-20) mg/dL Creatinine 0.4 L (0.8-1.5) mg/dL Estimated GFR > 60 ml/min BUN/Creatinine Ratio 35.00 % Glucose 97 (75-100) mg/dL Calcium 8.7 (8.4-10.2) mg/dL - Medical Decision Making Plan to admit patient to the hospital for PEG placement. Labs unremarkable - Differential Diagnosis PEG tube dislodgment/malfunction, dehydration Critical Care Time: No Critical care attestation.: If time is entered above; I have spent that time in minutes in the direct care of this critically ill patient, excluding procedure time. ED Disposition Clinical Impression: Encounter for PEG (percutaneous endoscopic gastrostomy), Dementia, History of CVA with residual deficit Disposition: OP ADMIT IP TO THIS HOSP Is pt being admited?: Yes Condition: Stable Time of Disposition: 12:52 (Dr Lima/hosp)
[2017-05-16 12:32] LABS: Basophils % (Auto) 0.4 % (0.0-1.8); Eosinophils % (Auto) 3.1 % (0.0-4.3); Hematocrit 36.5 % (35.5-45.6); Hemoglobin 11.8 gm/dl (11.8-15.2); Mean Corpuscular HGB Conc 32 % (32-34); Mean Corpuscular Hemoglobin 28 pg (28-32); Mean Corpuscular Volume 88 fl (84-94); Platelet Count 329 K/mm3 (140-440); Red Blood Count 4.16 M/mm3 (3.65-5.03); Red Cell Distribution Width 13.7 % (13.2-15.2); White Blood Count 6.5 K/mm3 (4.5-11.0)
[2017-05-16 12:37] LABS: Anion Gap 18 mmol/L; Blood Urea Nitrogen 14 mg/dL (9-20); Calcium 8.7 mg/dL (8.4-10.2); Carbon Dioxide 24 mmol/L (22-30); Chloride 99.2 mmol/L (98-107); Glucose 97 mg/dL (75-100); Potassium 4.3 mmol/L (3.6-5.0); Sodium 137 mmol/L (137-145)
[2017-05-16 12:44] LABS: INR 1.14 (0.87-1.13); Partial Thromboplastin Time 32.3 Sec. (24.2-36.6)
--- NOTE | 2017-05-16 14:17 | History and Physical Report ---
History of Present Illness Date of examination: 05/16/17 Chief complaint: Patient removed his PEG tube History of present illness: 71-year-old -Spanish male with past medical history significant for hypertension, dementia was brought from long-term after he removed his PEG tube. Patient is combative at baseline. Patient is not able to give any history. All history is from chart revision. Patient's vital signs are stable. Labs no significant abnormalities. Patient's physical therapist for PEG tube placement. Past History Past Medical History: hypertension, other (Dementia) Past Surgical History: Other (PEG tube placement) Social history: other (couldn't obtained because of dementia.) Family history: other (couldn't obtained because of dementia.) Medications and Allergies Allergies Allergy/AdvReac Type Severity Reaction Status Date / Time No Known Allergies Allergy Unverified 01/12/17 00:39 Home Medications Medication Instructions Recorded Confirmed Last Taken Type Ascorbic Acid [Vitamin C] 500 mg PO QDAY 01/12/17 01/12/17 Unknown History Divalproex Sodium [Depakote] 125 mg PO TID 01/12/17 01/12/17 Unknown History Donepezil [Aricept] 5 mg PO QDAY 01/12/17 01/12/17 Unknown History Memantine HCl [Namenda] 10 mg PO QDAY 01/12/17 01/12/17 Unknown History Metoprolol [Lopressor TAB] 50 mg PO BID 01/12/17 01/12/17 Unknown History Mirtazapine [Remeron] 15 mg PO QHS 01/12/17 01/12/17 Unknown History Nitrofurantoin Macrocrysta(Nf) 50 mg PO QDAY 01/12/17 01/12/17 Unknown History [Macrodantin CAP] Phenytoin [Dilantin] 100 mg PO QDAY 01/12/17 01/12/17 Unknown History fentaNYL [Duragesic] 25 mcg TD Q3D 01/12/17 01/12/17 Unknown History traMADol [Ultram] 50 mg PO Q8HR PRN 01/12/17 01/12/17 Unknown History Review of Systems ROS unobtainable: due to mental status (couldn't obtained because of dementia.) Exam - Physical Exam Narrative exam: Not in cardiopulmonary distress. The patient appeared well nourished and normally developed. Vital signs as documented. Head exam is unremarkable. No scleral icterus . Neck is without jugular venous distension, thyromegaly, or carotid bruits. Lungs are clear to auscultation. Cardiac exam reveals regular rate and Rhythm. First and second heart sounds normal. No murmurs, rubs or gallops. Abdominal exam reveals normal bowel sounds, no masses, no organomegaly and no aortic enlargement. IN PROCESSING INSTRUCTOR: Patient is alert and combative. Dementia. - Constitutional Vitals: Temp Pulse Resp BP Pulse Ox 97.3 F L 61 16 136/68 99 05/16/17 10:10 05/16/17 10:10 05/16/17 10:10 05/16/17 10:10 05/16/17 10:10 Results - Labs CBC & Chem 7: 05/16/17 11:55 05/16/17 11:55 Labs: Laboratory Last Values WBC 6.5 K/mm3 (4.5-11.0) 05/16/17 11:55 RBC 4.16 M/mm3 (3.65-5.03) 05/16/17 11:55 Hgb 11.8 gm/dl (11.8-15.2) 05/16/17 11:55 Hct 36.5 % (35.5-45.6) 05/16/17 11:55 MCV 88 fl (84-94) 05/16/17 11:55 MCH 28 pg (28-32) 05/16/17 11:55 MCHC 32 % (32-34) 05/16/17 11:55 RDW 13.7 % (13.2-15.2) 05/16/17 11:55 Plt Count 329 K/mm3 (140-440) 05/16/17 11:55 Lymph % (Auto) 22.4 % (13.4-35.0) 05/16/17 11:55 [place] % (Auto) 6.6 % (0.0-7.3) 05/16/17 11:55 Eos % (Auto) 3.1 % (0.0-4.3) 05/16/17 11:55 Baso % (Auto) 0.4 % (0.0-1.8) 05/16/17 11:55 Lymph # 1.5 K/mm3 (1.2-5.4) 05/16/17 11:55 [place] # 0.4 K/mm3 (0.0-0.8) 05/16/17 11:55 Eos # 0.2 K/mm3 (0.0-0.4) 05/16/17 11:55 Baso # 0.0 K/mm3 (0.0-0.1) 05/16/17 11:55 Seg Neutrophils % 67.5 % (40.0-70.0) 05/16/17 11:55 Seg Neutrophils # 4.4 K/mm3 (1.8-7.7) 05/16/17 11:55 PT 14.5 Sec. (12.2-14.9) 05/16/17 11:55 INR 1.14 (0.87-1.13) H 05/16/17 11:55 APTT 32.3 Sec. (24.2-36.6) 05/16/17 11:55 Sodium 137 mmol/L (137-145) 05/16/17 11:55 Potassium 4.3 mmol/L (3.6-5.0) 05/16/17 11:55 Chloride 99.2 mmol/L (98-107) 05/16/17 11:55 Carbon Dioxide 24 mmol/L (22-30) 05/16/17 11:55 Anion Gap 18 mmol/L 05/16/17 11:55 BUN 14 mg/dL (9-20) 05/16/17 11:55 Creatinine 0.4 mg/dL (0.8-1.5) L 05/16/17 11:55 Estimated GFR > 60 ml/min 05/16/17 11:55 BUN/Creatinine Ratio 35.00 % 05/16/17 11:55 Glucose 97 mg/dL (75-100) 05/16/17 11:55 Calcium 8.7 mg/dL (8.4-10.2) 05/16/17 11:55 Assessment and Plan Assessment and plan: Self removal of PEG tube - GI consult for PEG tube placement -NG tube for medication and feeding until PEG tube is placed Severe dementia -Continue home medications Hypertension - Currently controlled - Continue on medications Seizure disorder -Continue home medications Deconditioned - PT DVT prophylaxis -Heparin Disposition - to medical floor Advance Directives: Yes VTE prophylaxis?: Chemical Plan of care discussed with patient/family: No
[2017-05-16] MEDS ORDERED: ULTRAM PO PRN (14:19)
[2017-05-16] MEDS ORDERED: ULTRAM FEEDTUBE PRN (18:27)
--- NOTE | 2017-05-16 18:52 | Gastroenterology Consultation ---
History of Present Illness - Reason for Consult Consult date: 05/16/17 dislodged PEG Requesting physician: PORTER CARR - History of Present Illness Mr Nicole is a 71 yo male with advanced dementia, presenting from [place] with dislodged PEG. History gathered from chart review and discussion with staff. PEG apparently dislodged several hours prior to arrival. The site was closed at the time of exam by ED staff. No signs of abdominal pain, drainage, or erythema around previous peg site. Past History Past Medical History: hypertension, other (Dementia) Past Surgical History: Other (PEG tube placement) Social history: other (couldn't obtained because of dementia.) Family history: other (couldn't obtained because of dementia.) Medications and Allergies Allergies Allergy/AdvReac Type Severity Reaction Status Date / Time No Known Allergies Allergy Unverified 01/12/17 00:39 Home Medications Medication Instructions Recorded Confirmed Last Taken Type Ascorbic Acid [Vitamin C] 500 mg PO QDAY 01/12/17 05/16/17 05/14/17 06:00 History 500mg Divalproex Sodium [Depakote] 125 mg PO TID 01/12/17 05/16/17 05/15/17 22:00 History 125mg Donepezil [Aricept] 5 mg PO QDAY 01/12/17 05/16/17 05/15/17 21:00 History 5mg Memantine HCl [Namenda] 7.5 mg PO QDAY 01/12/17 05/16/17 05/15/17 21:00 History 7.5mg Metoprolol [Lopressor TAB] 50 mg PO BID 01/12/17 05/16/17 05/15/17 18:00 History 50mg Mirtazapine [Remeron] 7.5 mg PO QHS 01/12/17 05/16/17 05/04/17 21:00 History 7.5 Nitrofurantoin Macrocrysta(Nf) 100 mg PO QDAY 01/12/17 05/16/17 05/15/17 17:00 History [Macrodantin CAP] 50mg Phenytoin [Dilantin] 50 mg PO BID 01/12/17 05/16/17 05/15/17 18:00 History 50mg fentaNYL [Duragesic] 25 mcg TD Q3D 01/12/17 05/16/17 05/15/17 06:00 History 25mcg traMADol [Ultram] 50 mg PO Q8HR 01/12/17 05/16/17 05/14/17 06:00 History 50mg Active Meds: Active Medications Ascorbic Acid (Vitamin C) 500 mg FEEDTUBE QDAY NORMA Divalproex Sodium (Depakote Dr) 125 mg FEEDTUBE TID NORMA Donepezil HCl (Aricept) 5 mg FEEDTUBE QDAY NORMA Heparin Sodium (Porcine) (Heparin) 5,000 unit SUB-Q TID NORMA Memantine (Namenda Xr) 14 mg PO DAILY NORMA Metoprolol Tartrate (Lopressor) 50 mg FEEDTUBE BID NORMA Mirtazapine (Remeron) 7.5 mg FEEDTUBE QHS NORMA Phenytoin (Dilantin) 100 mg FEEDTUBE QDAY NORMA Tramadol HCl (Ultram) 50 mg FEEDTUBE Q8HR PRN PRN Reason: Pain Review of Systems - Review of Systems ROS unobtainable: due to mental status Exam - Exam Narrative Exam: Gen: elderly male, non-verbal Head: nc/at Mouth: dry mmm Neck: no LAD, no JVD CV: RRR Lungs: CTAB, non labored Abd: soft, nd, +bs, closed tract from previous peg tube site Ext: no edema, dry Neuro: oriented x 0 - Constitutional Vital Signs: Temp Pulse Resp BP Pulse Ox 97.3 F L 61 16 136/68 99 05/16/17 10:10 05/16/17 10:10 05/16/17 10:10 05/16/17 10:10 05/16/17 10:10 - Labs CBC & Chem 7: 05/16/17 11:55 05/16/17 11:55 Assessment and Plan Mr Nicole is a 71 yo male with advanced dementia presenting following dislodged PEG. Patient will need repeat EGD with PEG tube placement as previous tract is closed on exam. Will plan for procedure for likely Thursday. Alternate means of nutrition (PPN vs NG feeds) per primary team. -hold heparin in AM on 05/18
[2017-05-16] MEDS ORDERED: HEPARIN SUB-Q SCH (20:00)
[2017-05-16] MEDS ORDERED: LOPRESSOR PO SCH (22:00)
[2017-05-16] MEDS ORDERED: REMERON PO SCH (22:00)
[2017-05-16] MEDS ORDERED: LOPRESSOR FEEDTUBE SCH (22:00)
[2017-05-16] MEDS ORDERED: REMERON FEEDTUBE SCH (22:00)
[2017-05-16 23:14] VITALS: BP 98/50
[2017-05-17] MEDS ORDERED: DILANTIN FEEDTUBE SCH (10:00)
[2017-05-17] MEDS ORDERED: NON-FORMULARY (Memantine Hcl [Namenda] 10 MG) PO SCH (10:00)
[2017-05-17] MEDS ORDERED: ARICEPT PO SCH (10:00)
[2017-05-17] MEDS ORDERED: NAMENDA XR PO SCH (10:00)
[2017-05-17] MEDS ORDERED: VITAMIN C FEEDTUBE SCH (10:00)
[2017-05-17] MEDS ORDERED: DILANTIN PO SCH (10:00)
[2017-05-17] MEDS ORDERED: VITAMIN C PO SCH (10:00)
[2017-05-17] MEDS ORDERED: ARICEPT FEEDTUBE SCH (10:00)
== END 2017-05-16 21:45 | disposition left against medical advice (07) | DRG 394 ==
LOC: ED 09:24 → CC2 15:47
PROVIDERS: ADMIT Internal Medicine; ATTEND Internal Medicine
DX: Z43.1 Encounter for attention to gastrostomy (principal); I69.359 Hemiplegia and hemiparesis following cerebral infarction affecting unspecified side; F03.90 Unspecified dementia, unspecified severity, without behavioral disturbance, psychotic disturbance, mood disturbance, and anxiety; I10 Essential (primary) hypertension; N41.1 Chronic prostatitis; G40.909 Epilepsy, unspecified, not intractable, without status epilepticus; Z53.21 Procedure and treatment not carried out due to patient leaving prior to being seen by health care provider
CPT/HCPCS: 36415; 80048; 85025; 85610; 85730